=== PATIENT | male | born 1990 | race Caucasian/White ===

== ENCOUNTER 2020-03-27 11:36 | Emergency (ER) | payer SELFPAY ==
[~2020-03-27] VITALS: Ht 175.3 cm; Wt 94.8 kg
[2020-03-27 11:55] VITALS: Ht 175.3 cm; Wt 94.8 kg
[2020-03-27 15:02] VITALS: BP 142/80
== END 2020-03-27 15:02 | disposition home or self-care (01) ==
LOC: ED 11:36
DX: H16.002 Unspecified corneal ulcer, left eye (principal)